=== PATIENT | female | born 1995 | race African-American/Black ===

== ENCOUNTER 2018-10-19 18:29 | Emergency (ER) | payer OTHER, MEDICAID ==
[~2018-10-19] VITALS: Ht 157.5 cm; Wt 65.8 kg
[2018-10-19] MEDS ORDERED: IBUPROFEN 800800 M1 PO (18:37)
[2018-10-19 19:19] LABS: ABSOLUTE EOSINOPHILS 0.4 thou/uL (0.0-0.7); ABSOLUTE LYMPHOCYTES 2.5 thou/uL (0.8-5.3); ABSOLUTE MONOCYTES 0.4 thou/uL (0.0-1.2); ABSOLUTE NEUTROPHILS 1.7 thou/uL (1.6-8.1); BASOPHILS 0.6 %; EOSINOPHILS 8.2 %; HEMATOCRIT 38.5 % (37.0-47.0); HEMOGLOBIN 12.1 gm/dL (12.0-15.0); LYMPHOCYTES 48.7 %; MCH 26.5 pg (26.0-34.0); MCHC 31.3 g/dL (28.0-37.0); MCV 84.8 fL (80.0-100.0); MONOCYTES 8.4 %; MPV 8.5 fl. (7.2-11.1); NUCLEATED RBCS 0 /100WBC; PLATELET COUNT* 281 thou/uL (150-400); POLYS 34.1 %; RBC 4.54 mil/uL (4.20-5.00); RDW-CV 14.7 % (10.5-14.5); WBC 5.1 thou/uL (4.0-11.0)
[2018-10-19 19:24] LABS: CALCIUM 8.6 mg/dL (8.5-10.1); CREATININE 0.8 mg/dL (0.6-1.3); POTASSIUM 3.6 mmol/L (3.5-5.1)
[2018-10-19 19:28] LABS: ALBUMIN 3.3 g/dL (3.4-5.0); TOTAL BILIRUBIN 0.2 mg/dL (<0.1-1.0); TOTAL PROTEIN 6.8 g/dL (6.4-8.2)
[2018-10-19 19:35] LABS: URINE BILIRUBIN NEGATIVE (Negative); URINE BLOOD 1+ (Negative); URINE CLARITY CLEAR; URINE COLOR YELLOW; URINE GLUCOSE-RANDOM NEGATIVE (Negative); URINE KETONES TRACE (Negative); URINE LEUKOCYTES-REFLEX NEGATIVE (Negative); URINE NITRITE-REFLEX NEGATIVE (Negative); URINE PROTEIN NEGATIVE (Negative); URINE SPECIFIC GRAVITY 1.025 (1.005-1.030); URINE UROBILINOGEN 0.2 E.U./dl (0.2-1.0)
[2018-10-19 19:47] LABS: BACTERIA-REFLEX None Seen /HPF (None Seen); CASTS None Seen /LPF (None Seen); CRYSTALS None Seen /LPF (None Seen); MUCUS 4-6 Moderate strn/LPF (None Seen); SQUAMOUS 4-10 Moderate /LPF (0-3); URINE RBC 3-10 Few /HPF (0-2); URINE WBC-REFLEX 0-5 Rare /HPF (0-5)
[2018-10-19 21:26] VITALS: BP 124/70
== END 2018-10-19 21:26 | disposition home or self-care (01) ==
LOC: M.ERS 18:29
PROVIDERS: Nurse Practitioner Family
DX: R10.32 Left lower quadrant pain (principal)

== ENCOUNTER 2020-12-03 21:51 | Emergency (ER) | payer OTHER, MEDICAID ==
[~2020-12-03] VITALS: Ht 157.5 cm; Wt 80.7 kg
[~2020-12-03 21:51] MED LIST: IBUPROFEN 800800 M1 PO
[2020-12-03 21:56] VITALS: BP 117/77
[2020-12-03] MEDS ORDERED: ANUSOL-HC25 MG RECTAL (22:13)
[2020-12-03] MEDS ORDERED: PROCTOFOAM-HC 110 GM TOP (22:13)
== END 2020-12-03 22:31 | disposition home or self-care (01) ==
LOC: M.ERS 21:51
DX: O22.43 Hemorrhoids in pregnancy, third trimester (principal); Z3A.32 32 weeks gestation of pregnancy; Z98.890 Other specified postprocedural states

== ENCOUNTER 2021-02-23 02:01 | Emergency (ER) | payer OTHER, MEDICAID ==
[~2021-02-23] VITALS: Ht 157.5 cm; Wt 80.7 kg
[~2021-02-23 02:01] MED LIST changes: +ANUSOL-HC25 MG RECTAL; +PROCTOFOAM-HC 110 GM TOP
[2021-02-23] MEDS ORDERED: PERCOCET 5-3251 EACH PO (02:23)
[2021-02-23] MEDS ORDERED: IBUPROFEN 400400 M2 PO (02:24)
[2021-02-23 03:16] VITALS: BP 125/80
== END 2021-02-23 03:18 | disposition home or self-care (01) ==
LOC: M.ERS 02:01
DX: Z48.01 Encounter for change or removal of surgical wound dressing (principal); Z98.890 Other specified postprocedural states